=== PATIENT | female | born 1970 | race Caucasian/White ===

== ENCOUNTER 2017-02-25 16:34 | Inpatient (IN) | payer OTHER ==
[~2017-02-25] VITALS: Ht 172.7 cm; Wt 108.4 kg
[~2017-02-25 16:34] MED LIST: ACET500 PO; BUPR150ER PO; CEPH500 PO; Cipro500 MG PO; DIPATR PO; FLUC100 PO; FOLI1 PO; HUMIRA40 MG/0.8; IBUP800 PO; Imuran50 MG PO; K-Dur10 MEQ PO; Lialda1.2 GM PO; METR500 PO; OMEP20ER PO; PENVK500 PO; Pentasa500 MG PO; Robaxin750 MG; TYLENOL PM PO; Ultram50 MG PO; XARELTO20 MG PO; Zofran Odt4 MG PO
[2017-02-25] MEDS ORDERED: AZAT50 PO (16:53)
[2017-02-25 17:31] LABS: Hematocrit 39.6 % (33.0-51.0); Hemoglobin 13.1 g/dL (11.5-16.0); Mean Corpuscular HGB Conc 33.1 g/dL (31.5-36.5); Mean Corpuscular Volume 94 fL (80-100); Mean Platelet Volume 12.4 fL (9.1-12.4); Platelet Count 166 K/mm3 (150-400); RDW Coefficient Variation 12.6 % (11.7-14.2); RDW Standard Deviation 42.7 fL (35.1-46.3); Red Blood Cell Count 4.22 M/mm3 (3.80-5.20); White Blood Cell Count 9.47 K/mm3 (4.00-11.30)
[2017-02-25 17:46] LABS: Alanine Aminotransfer (ALT/SGP 20 U/L (12-78); Albumin, Blood 3.6 g/dL (3.4-5.0); Albumin/Globulin Ratio 0.9 (0.8-1.8); Alk Phos 124 U/L (50-136); Anion Gap 6 mmol/L (6-16); Aspartate Aminotrans (AST/SGOT 15 U/L (12-37); Bilirubin, Total 0.5 mg/dL (0.1-1.0); Blood Urea Nitrogen 11 mg/dL (8-24); Bun/Creatinine Ratio 14.9 (12.0-20.0); CO2, Blood 28 mmol/L (21-32); Calcium, Blood 9.3 mg/dL (8.5-10.1); Chloride, Blood 103 mmol/L (98-108); Creatinine, Blood 0.74 mg/dL (0.40-1.00); Globulin, Blood 4.2 g/dL (2.2-4.0); Glomerular Filtration Rate >60 (60-); Glucose, Blood 107 mg/dL (70-99); Potassium, Blood 3.6 mmol/L (3.5-5.5); Sodium, Blood 137 mmol/L (136-145); Total Protein, Blood 7.8 g/dL (6.4-8.2)
[2017-02-25 18:04] LABS: BASOPHILS PERCENT MAN 0 % (0-2); EOSINOPHILS ABSOLUTE MAN 0.56 K/mm3 (0.00-0.68); EOSINOPHILS PERCENT MAN 6 % (0-6); LYMPHOCYTES ABSOLUTE MAN 1.89 K/mm3 (0.84-5.20); LYMPHOCYTES PERCENT MAN 20 % (21-46); MONOCYTES ABSOLUTE MAN 0.66 K/mm3 (0.16-1.47); MONOCYTES PERCENT MAN 7 % (4-13); NEUTROPHILS ABSOLUTE MAN 6.34 K/mm3 (1.96-9.15); SEG NEUTROPHILS PERCENT MAN 67 % (41-73); TOTAL CELLS COUNTED 100
[2017-02-26 05:27] LABS: BASOPHILS ABSOLUTE AUTO 0.02 K/mm3 (0.00-0.23); BASOPHILS PERCENT AUTO 0 % (0-2); EOSINOPHILS ABSOLUTE AUTO 0.15 K/mm3 (0.00-0.68); EOSINOPHILS PERCENT AUTO 2 % (0-6); Hematocrit 37.1 % (33.0-51.0); Hemoglobin 12.2 g/dL (11.5-16.0); IMMATURE GRAN ABSOLUTE AUTO 0.03 K/mm3 (0.00-0.10); IMMATURE GRAN PERCENT AUTO 0 % (0-1); LYMPHOCYTES ABSOLUTE AUTO 1.35 K/mm3 (0.84-5.20); LYMPHOCYTES PERCENT AUTO 20 % (21-46); MONOCYTES ABSOLUTE AUTO 0.28 K/mm3 (0.16-1.47); MONOCYTES PERCENT AUTO 4 % (4-13); Mean Corpuscular HGB 31.2 pg (26.0-34.0); Mean Corpuscular HGB Conc 32.9 g/dL (31.5-36.5); Mean Corpuscular Volume 95 fL (80-100); Mean Platelet Volume 12.9 fL (9.1-12.4); NEUTROPHILS ABSOLUTE AUTO 4.85 K/mm3 (1.96-9.15); NEUTROPHILS PERCENT AUTO 73 % (41-73); Platelet Count 147 K/mm3 (150-400); RDW Coefficient Variation 12.8 % (11.7-14.2); RDW Standard Deviation 43.6 fL (35.1-46.3); Red Blood Cell Count 3.91 M/mm3 (3.80-5.20); White Blood Cell Count 6.68 K/mm3 (4.00-11.30)
[2017-02-26 05:57] LABS: Anion Gap 9 mmol/L (6-16); Blood Urea Nitrogen 8 mg/dL (8-24); Bun/Creatinine Ratio 13.6 (12.0-20.0); CO2, Blood 24 mmol/L (21-32); Chloride, Blood 105 mmol/L (98-108); Creatinine, Blood 0.59 mg/dL (0.40-1.00); Glomerular Filtration Rate >60 (60-); Glucose, Blood 78 mg/dL (70-99); Sodium, Blood 138 mmol/L (136-145)
[2017-02-26 05:58] LABS: Calcium, Blood 8.3 mg/dL (8.5-10.1)
[2017-03-01] MEDS ORDERED: ACET325 PO (11:15)
[2017-03-01] MEDS ORDERED: HYDMOR2 PO (11:16)
[2017-03-01] MEDS ORDERED: ONDA4ODT MM (11:17)
== END 2017-03-01 11:36 | disposition home or self-care (01) | DRG 439 ==
LOC: ER 16:34 → MEDS 18:42 → ENPENDDIS 03-01 11:00 → MEDS 03-01 11:36
PROVIDERS: Internal Medicine
DX: K85.90 Acute pancreatitis without necrosis or infection, unspecified (principal); D68.61 Antiphospholipid syndrome; K50.90 Crohn's disease, unspecified, without complications; F32.9 Major depressive disorder, single episode, unspecified; K80.20 Calculus of gallbladder without cholecystitis without obstruction; K21.9 Gastro-esophageal reflux disease without esophagitis; F17.210 Nicotine dependence, cigarettes, uncomplicated; Z79.01 Long term (current) use of anticoagulants; Z79.899 Other long term (current) drug therapy
CPT/HCPCS: 36415; 74177; 76705; 80048; 80053; 83605; 83690; 84145; 85007; 85025; 85027; 87040; 93005; 93010; 96361; 96374; 96375; 96376; 99285; C9113; J0295; J1170; J2405; J7030; J7500; Q9967

== ENCOUNTER 2017-04-27 00:14 | Day surgery (SDC) | payer OTHER ==
[~2017-04-27 00:14] MED LIST changes: +ACET325 PO; +AZAT50 PO; +HYDMOR2 PO; +ONDA4ODT MM
[2017-04-27] MEDS ORDERED: METR250 PO (08:43)
[2017-04-27] MEDS ORDERED: INFLECTRA100 MG IV (08:44)
== END 2017-04-27 11:20 | disposition home or self-care (01) ==
LOC: ATC 00:14
DX: K50.10 Crohn's disease of large intestine without complications (principal); K65.1 Peritoneal abscess; I81 Portal vein thrombosis; K76.0 Fatty (change of) liver, not elsewhere classified; K85.30 Drug induced acute pancreatitis without necrosis or infection; F17.210 Nicotine dependence, cigarettes, uncomplicated
CPT/HCPCS: 96375; 96413; 96415; J1720; J7050; Q0163; Q5102-ZB

== ENCOUNTER 2017-05-11 00:43 | Day surgery (SDC) | payer OTHER ==
[~2017-05-11 00:43] MED LIST changes: +INFLECTRA100 MG IV; +METR250 PO
== END 2017-05-11 10:45 | disposition home or self-care (01) ==
LOC: ATC 00:43
DX: K50.10 Crohn's disease of large intestine without complications (principal); K65.1 Peritoneal abscess; I81 Portal vein thrombosis; K76.0 Fatty (change of) liver, not elsewhere classified; K85.30 Drug induced acute pancreatitis without necrosis or infection; F17.210 Nicotine dependence, cigarettes, uncomplicated
CPT/HCPCS: 96375; 96413; 96415; J1720; J7050; Q0163; Q5102-ZB

== ENCOUNTER 2017-06-22 00:45 | Day surgery (SDC) | payer OTHER | END 2017-06-22 10:35 | disposition home or self-care (01) | LOC: ATC 00:45 | DX: K50.10 Crohn's disease of large intestine without complications (principal); K65.1 Peritoneal abscess; K76.0 Fatty (change of) liver, not elsewhere classified; K85.30 Drug induced acute pancreatitis without necrosis or infection | CPT/HCPCS: 96375; 96413; 96415; J1720; J7050; Q0163; Q5103 ==

== ENCOUNTER → 2017-11-21 | Outpatient (CLI) | payer OTHER | LOC: LAB 17:32 → LAB SHORT 17:32 | DX: N39.0 Urinary tract infection, site not specified (principal) | CPT/HCPCS: 87077; 87086; 87186 ==

== ENCOUNTER 2019-01-16 09:45 | Observation (INO) | payer OTHER ==
[~2019-01-16] VITALS: Ht 172.7 cm; Wt 105.2 kg
[~2019-01-16 09:45] MED LIST changes: -ADAL40PEN SC; -BUPROPION XL150 M1 PO; -CLON.1 PO; -HYDR1TAB94 PO; -LEVSOD25 PO; -Metoclopramide H5 MG PO; -Nicoderm Cq1 EAC1 TOP; -ONDA4ODT SL
[2019-01-16] MEDS ORDERED: CLON.1 PO (11:24)
[2019-01-16] MEDS ORDERED: BUPROPION XL150 M1 PO (13:01)
[2019-01-16] MEDS ORDERED: ADAL40PEN SC (14:20)
[2019-01-16 17:46] LABS: U Amphetamine Screen Not Detected; U Barbituate Screen Not Detected; U Benzodiazapine Screen Not Detected; U Buprenorphine Screen Not Detected; U Cannabinoids Screen Not Detected; U Cocaine Screen Not Detected; U Methadone Screen Not Detected; U Methamphetamine Screen Not Detected; U Opiates Screen DETECTED; U Oxycodone Screen Not Detected; U Phencyclidine Screen Not Detected; U Propoxyphene Screen Not Detected
--- NOTE | 2019-01-16 18:38 | NUR ---
SHIFT SUMMARY PATIENT ARRIVED VIA STRETCHER. MEDICATED FOR PAIN. RESTING IN BED. UA RECIEVED. ABLE TO MAKE HER NEEDS KNOWN. NO ACUTE ISSUES NOTED.
--- NOTE | 2019-01-16 22:10 | NUR ---
PATIENT REPORTS NOT GETTING PAIN RELIEF WITH FENTANYL IV 50 MCG Q2. PAIN LEVEL UP TO 9/10 AND ONLY DOWN TO 5-6/10. HOSPITALIST [facility] CHANGED ORDER TO IV DIALAUDID 1 MG Q2 AND DC'D FENTANYL.
--- NOTE | 2019-01-17 03:12 | NUR ---
SHIFT SUMMARY PATIENT HAD NO ACUTE CHANGES OBSERVED. AXOX 4 AND INDEPENDENT IN ROOM. REPORTED ABDOMINAL PAIN AND RECEIVED FENTANYL 50 MCG IV Q2 PER EMAR. PATIENT REPORTED PAIN REDUCED TO ONLY 5-6/10 FROM 11/05 AND HAD BETTER RESULTS WITH IV DILAUDID 1 MG IN ED. HOSPITALIST LORENA WOLFF CALLED AND CHANGED ORDER TO IV DILAUDID 1 MG Q2. PAIN REDUCED AND PATIENT ABLE TO SLEEP OVER FOUR HOURS. PIV REMAINS INTACT. NS INFUSING AT 75 mL/HR. ROOM AIR AND CIWA'S ONE FOR ANXIETY. VSS/AFEBRILE. DENIES N/V AND SOB. CALL LIGHT IN REACH. WILL CONTINUE TO MONITOR UNTIL DAY SHIFT NURSE ASSUMES CARE.
[2019-01-17 05:33] LABS: Hemoglobin 13.7 g/dL (11.5-16.0); Mean Corpuscular HGB Conc 32.6 g/dL (31.5-36.5); Mean Corpuscular Volume 110 fL (80-100); Mean Platelet Volume 11.9 fL (9.1-12.4); Platelet Count 104 K/mm3 (150-400); RDW Coefficient Variation 14.2 % (11.7-14.2); RDW Standard Deviation 58.5 fL (35.1-46.3); Red Blood Cell Count 3.81 M/mm3 (3.80-5.20); White Blood Cell Count 6.95 K/mm3 (4.00-11.30)
[2019-01-17 05:41] LABS: Alanine Aminotransfer (ALT/SGP 49 U/L (12-78); Albumin, Blood 2.9 g/dL (3.4-5.0); Albumin/Globulin Ratio 0.7 (0.8-1.8); Alk Phos 127 U/L (50-136); Anion Gap 3 mmol/L (6-16); Aspartate Aminotrans (AST/SGOT 77 U/L (12-37); Bilirubin, Total 0.9 mg/dL (0.1-1.0); Blood Urea Nitrogen 8 mg/dL (8-24); Bun/Creatinine Ratio 11.5 (12.0-20.0); CO2, Blood 29 mmol/L (21-32); Calcium, Blood 8.3 mg/dL (8.5-10.1); Chloride, Blood 107 mmol/L (98-108); Creatinine, Blood 0.69 mg/dL (0.40-1.00); Globulin, Blood 3.9 g/dL (2.2-4.0); Glomerular Filtration Rate >60 (60-); Glucose, Blood 97 mg/dL (70-99); Magnesium, Blood 2.1 mg/dL (1.6-2.4); Potassium, Blood 4.2 mmol/L (3.5-5.5); Sodium, Blood 139 mmol/L (136-145); Total Protein, Blood 6.8 g/dL (6.4-8.2)
--- NOTE | 2019-01-17 16:40 | NUR ---
1625 PT REF[address]ING SX CONSULT[address] DR RUIZ NOTIFIED OF PT'S REFUSAL, ORDERS TO CANCEL SX CONSULT. [address] PARKS'S OFFICE AGAIN TO INFORM THEM OF PT'S REFUSAL; OFFICE CLOSED EARLY. CALLED ANS @ 1625; LEFT MESSAGE TO CANCEL CONSULT.
--- NOTE | 2019-01-17 18:39 | NUR ---
SHIFT SUMMARY PT AWAKE DURING SHIFT REPORT, SITTING UPRIGHT IN BED WATCHING TV. REQUESTED PAIN MEDICATION W/A FOR MID-ABD PAIN. PT ADMITTED FOR PANCREATITIS R/T ETOH ABUSE. IVF'S INFUSING PER EMAR. PT INDEPENDENT IN RM TO BTHRM NEEDED. NO C/O NAUSEA THRU OUT THE DAY. PT WANTING TO HAVE ICE WATER; DR RUIZ IN TO SEE PT AND ADVANCED DIET TOLERATED. PT OFFERED CL AND TOLERATED WELL STARTING SLOW. DR RUIZ PUT IN FOR SX CONSULT THIS AFTERNOON FOR POSSIBLE LAB BECKI. DR PARKS'S OFFICE CALLED FOR CONSULT AND DR PARKS RETURNED CALL, PLACING ORDERS. PT THEN INFORMED OF ORDERS AND REFUSED CONSULT. PT REPORTED THAT SHE HAD HAD GALL STONES FOR YEARS, BUT RECENT TESTS SHOWED PT CLEAR AT THIS TIME. DR RUIZ INFORMED OF PT'S REFUSAL, INSTRUCTED TO CANCEL CONSULT PANCREATITIS MOSTLY LIKELY ALCOHOL RELATED. PT REPORTED THAT SHE WILL F/U WITH OUTPT GI NEEDED. PT MEDICATED FOR C/O PAIN TONIGHT, "NOT BAD, BUT INCREASING". PT THEN C/O NAUSEA AFTER IV DILAUDID GIVEN. ZOFRAN GIVEN PER EMAR. PT RESTING QUIETLY WATCHING TV. NO FURTHER C/O. CALL LT IN REACH.
--- NOTE | 2019-01-18 00:15 | NUR ---
BEGINNING SHIFT SUMMARY ASSUMED CARE OF PT AT 1900. PT WAS LYING IN BED WITH HER HEAD UP, PT STATES SHE FEELS BETTER BUT IS A LITTLE NAUSEOUS AFTER HER CLEAR LIQUID DIET. HEART SOUNDS REGULAR, PERIPHERAL PULSES STRONG, IV RUNNING NS @ 75ML/HR. LUNG SOUNDS CLEAR, PING SOB/ DYSPNEA. BOWEL SOUNDS HYPOACTIVE, ABDOMINAL TENDERNESS IN THE PERIUMBILICAL AREA. PT ATE ONE ICECREAM AND TOLERATED IT WELL. CALL LIGHT IN REACH, BED IN LOWEST POITION, WILL CONTINUE TO MONITOR.
--- NOTE | 2019-01-18 05:06 | NUR ---
END SHIFT SUMMARY NO ACUTE CHANGES NOTED THROUGHOUT THE SHIFT. PT WAS WOKEN FOR MORNING LABS AND MEDICATION ADMINISTRATION. PT STATED THAT SHE WAS FEELING BETTER, HAD LITTLE TO NO PAIN IN HER ABDOMEN, AND DENIES NEASEA. IV RUNNING NS @ 75ML/HR. CALL LIGHT IN REACH, BED IN LOWEST POSITIN, WILL CONTINUE TO MONITOR UNTIL DAYSHIFT NURSE ARRIVES.
[2019-01-18 05:19] LABS: BASOPHILS ABSOLUTE AUTO 0.02 K/mm3 (0.00-0.23); BASOPHILS PERCENT AUTO 0 % (0-2); EOSINOPHILS ABSOLUTE AUTO 0.24 K/mm3 (0.00-0.68); EOSINOPHILS PERCENT AUTO 4 % (0-6); Hematocrit 41.2 % (33.0-51.0); Hemoglobin 13.5 g/dL (11.5-16.0); IMMATURE GRAN ABSOLUTE AUTO 0.02 K/mm3 (0.00-0.10); IMMATURE GRAN PERCENT AUTO 0 % (0-1); LYMPHOCYTES ABSOLUTE AUTO 1.29 K/mm3 (0.84-5.20); LYMPHOCYTES PERCENT AUTO 20 % (21-46); MONOCYTES ABSOLUTE AUTO 0.29 K/mm3 (0.16-1.47); MONOCYTES PERCENT AUTO 5 % (4-13); Mean Corpuscular HGB 36.5 pg (26.0-34.0); Mean Corpuscular HGB Conc 32.8 g/dL (31.5-36.5); Mean Corpuscular Volume 111 fL (80-100); Mean Platelet Volume 12.6 fL (9.1-12.4); NEUTROPHILS ABSOLUTE AUTO 4.52 K/mm3 (1.96-9.15); NEUTROPHILS PERCENT AUTO 71 % (41-73); Platelet Count 115 K/mm3 (150-400); RDW Coefficient Variation 14.1 % (11.7-14.2); RDW Standard Deviation 58.6 fL (35.1-46.3); White Blood Cell Count 6.38 K/mm3 (4.00-11.30)
[2019-01-18 06:13] LABS: Alanine Aminotransfer (ALT/SGP 59 U/L (12-78); Albumin, Blood 3.1 g/dL (3.4-5.0); Albumin/Globulin Ratio 0.7 (0.8-1.8); Alk Phos 125 U/L (50-136); Anion Gap 4 mmol/L (6-16); Aspartate Aminotrans (AST/SGOT 88 U/L (12-37); Bilirubin, Total 0.9 mg/dL (0.1-1.0); Blood Urea Nitrogen 5 mg/dL (8-24); Bun/Creatinine Ratio 7.2 (12.0-20.0); CO2, Blood 29 mmol/L (21-32); Calcium, Blood 8.9 mg/dL (8.5-10.1); Chloride, Blood 108 mmol/L (98-108); Creatinine, Blood 0.69 mg/dL (0.40-1.00); Globulin, Blood 4.3 g/dL (2.2-4.0); Glomerular Filtration Rate >60 (60-); Glucose, Blood 92 mg/dL (70-99); Potassium, Blood 4.2 mmol/L (3.5-5.5); Sodium, Blood 141 mmol/L (136-145); Total Protein, Blood 7.4 g/dL (6.4-8.2)
[2019-01-18] MEDS ORDERED: HYDR1TAB94 PO (11:31)
[2019-01-18] MEDS ORDERED: LEVSOD25 PO (11:32)
[2019-01-18] MEDS ORDERED: Metoclopramide H5 MG PO (11:32)
[2019-01-18] MEDS ORDERED: Nicoderm Cq1 EAC1 TOP (11:33)
[2019-01-18] MEDS ORDERED: ONDA4ODT SL (11:33)
--- NOTE | 2019-01-18 12:30 | NUR ---
DISCHARGE INSTRUCTIONS COMPLETED AND DISCUSSED WITH PT EXPRESSING UNDERSTANDING. SCRIPTS FAXED TO [facility]. PT WISHED TO AMBULATE TO HER CAR. LEFT AT 1210.
== END 2019-01-18 12:15 | disposition home or self-care (01) ==
LOC: ER 09:45 → MEDS 09:46 → ER 12:51 → MEDS 12:51 → ENPENDDIS 01-18 09:47 → MEDS 01-18 12:15
PROVIDERS: Nurse Practitioner Acute Care; ADMIT Family Medicine
DX: K85.20 Alcohol induced acute pancreatitis without necrosis or infection (principal); F10.20 Alcohol dependence, uncomplicated; D68.61 Antiphospholipid syndrome; K50.90 Crohn's disease, unspecified, without complications; E03.9 Hypothyroidism, unspecified; F32.9 Major depressive disorder, single episode, unspecified; K21.9 Gastro-esophageal reflux disease without esophagitis; D69.6 Thrombocytopenia, unspecified; K80.20 Calculus of gallbladder without cholecystitis without obstruction; I10 Essential (primary) hypertension; F17.210 Nicotine dependence, cigarettes, uncomplicated; E66.9 Obesity, unspecified; Z68.35 Body mass index [BMI] 35.0-35.9, adult; Z86.718 Personal history of other venous thrombosis and embolism; Z79.01 Long term (current) use of anticoagulants
CPT/HCPCS: 36415; 76705; 80053; 83690; 83735; 84443; 85025; 85027; 96361; 96374; 96375; 96376; 99285-25; G0378; J1170; J2405; J3010; J3411; J3475; J7030; J7042

== ENCOUNTER → 2019-01-16 | Outpatient (CLI) | payer OTHER ==
[~2019-01-16] MED LIST changes: +ADAL40PEN SC; +BUPROPION XL150 M1 PO; +CLON.1 PO; +HYDR1TAB94 PO; +LEVSOD25 PO; +Metoclopramide H5 MG PO; +Nicoderm Cq1 EAC1 TOP; +ONDA4ODT SL
[2019-01-16 08:36] LABS: BASOPHILS ABSOLUTE AUTO 0.06 K/mm3 (0.00-0.23); BASOPHILS PERCENT AUTO 1 % (0-2); EOSINOPHILS ABSOLUTE AUTO 0.27 K/mm3 (0.00-0.68); EOSINOPHILS PERCENT AUTO 4 % (0-6); Hematocrit 44.7 % (33.0-51.0); Hemoglobin 15.3 g/dL (11.5-16.0); IMMATURE GRAN ABSOLUTE AUTO 0.02 K/mm3 (0.00-0.10); IMMATURE GRAN PERCENT AUTO 0 % (0-1); LYMPHOCYTES ABSOLUTE AUTO 1.67 K/mm3 (0.84-5.20); LYMPHOCYTES PERCENT AUTO 24 % (21-46); MONOCYTES ABSOLUTE AUTO 0.33 K/mm3 (0.16-1.47); MONOCYTES PERCENT AUTO 5 % (4-13); Mean Corpuscular HGB 36.3 pg (26.0-34.0); Mean Corpuscular HGB Conc 34.2 g/dL (31.5-36.5); Mean Corpuscular Volume 106 fL (80-100); Mean Platelet Volume 12.3 fL (9.1-12.4); NEUTROPHILS ABSOLUTE AUTO 4.68 K/mm3 (1.96-9.15); NEUTROPHILS PERCENT AUTO 67 % (41-73); Platelet Count 142 K/mm3 (150-400); RDW Coefficient Variation 14.2 % (11.7-14.2); RDW Standard Deviation 55.2 fL (35.1-46.3); Red Blood Cell Count 4.22 M/mm3 (3.80-5.20); White Blood Cell Count 7.03 K/mm3 (4.00-11.30)
[2019-01-16 09:17] LABS: Alanine Aminotransfer (ALT/SGP 60 U/L (12-78); Albumin, Blood 3.4 g/dL (3.4-5.0); Albumin/Globulin Ratio 0.7 (0.8-1.8); Alk Phos 168 U/L (50-136); Anion Gap 4 mmol/L (6-16); Aspartate Aminotrans (AST/SGOT 102 U/L (12-37); Bilirubin, Total 0.7 mg/dL (0.1-1.0); Blood Urea Nitrogen 9 mg/dL (8-24); Bun/Creatinine Ratio 11.7 (12.0-20.0); CO2, Blood 31 mmol/L (21-32); Calcium, Blood 9.5 mg/dL (8.5-10.1); Chloride, Blood 104 mmol/L (98-108); Creatinine, Blood 0.77 mg/dL (0.40-1.00); Globulin, Blood 4.7 g/dL (2.2-4.0); Glomerular Filtration Rate >60 (60-); Glucose, Blood 115 mg/dL (70-99); Potassium, Blood 4.4 mmol/L (3.5-5.5); Sodium, Blood 139 mmol/L (136-145); Total Protein, Blood 8.1 g/dL (6.4-8.2)
== END | disposition home or self-care (01) ==
LOC: LAB EV 08:30 → LAB SHORT 08:30
PROVIDERS: General Practice
DX: D75.89 Other specified diseases of blood and blood-forming organs (principal); R10.9 Unspecified abdominal pain
CPT/HCPCS: 80053; 82607; 82746; 83690; 85025

== ENCOUNTER → 2019-06-09 | Outpatient (CLI) | payer OTHER ==
[~2019-06-09] MED LIST changes: +ADAL40PEN SC; +BUPROPION XL150 M1 PO; +CLON.1 PO; +HYDR1TAB94 PO; +LEVSOD25 PO; +Metoclopramide H5 MG PO; +Nicoderm Cq1 EAC1 TOP; +ONDA4ODT SL
== END | disposition home or self-care (01) ==
LOC: PLD 11:32 → LAB SHORT 11:32
DX: L73.8 Other specified follicular disorders (principal)
CPT/HCPCS: 88305

== ENCOUNTER 2019-07-09 18:33 | Inpatient (IN) | payer OTHER ==
[~2019-07-09] VITALS: Ht 172.7 cm; Wt 107.0 kg
[2019-07-09] MEDS ORDERED: VITAMIN D-32000 UNIT PO (18:49)
[2019-07-09 19:24] LABS: Hemoglobin 15.1 g/dL (11.5-16.0); Mean Corpuscular HGB 32.7 pg (26.0-34.0); Mean Corpuscular HGB Conc 32.8 g/dL (31.5-36.5); Mean Corpuscular Volume 100 fL (80-100); Mean Platelet Volume 12.8 fL (9.1-12.4); Platelet Count 122 K/mm3 (150-400); RDW Coefficient Variation 12.5 % (11.7-14.2); RDW Standard Deviation 45.7 fL (35.1-46.3); Red Blood Cell Count 4.62 M/mm3 (3.80-5.20); White Blood Cell Count 5.15 K/mm3 (4.00-11.30)
[2019-07-09 19:39] LABS: Alanine Aminotransfer (ALT/SGP 27 U/L (12-78); Albumin, Blood 2.8 g/dL (3.4-5.0); Albumin/Globulin Ratio 0.6 (0.8-1.8); Alk Phos 181 U/L (50-136); Anion Gap 9 mmol/L (6-16); Aspartate Aminotrans (AST/SGOT 55 U/L (12-37); Bilirubin, Total 1.2 mg/dL (0.1-1.0); Blood Urea Nitrogen 6 mg/dL (8-24); Bun/Creatinine Ratio 13.9 (12.0-20.0); CO2, Blood 23 mmol/L (21-32); Calcium, Blood 8.5 mg/dL (8.5-10.1); Chloride, Blood 103 mmol/L (98-108); Creatinine, Blood 0.43 mg/dL (0.40-1.00); Ethanol (Alcohol), Blood, Med <3 mg/dL; Glomerular Filtration Rate >60 (60-); Glucose, Blood 92 mg/dL (70-99); Potassium, Blood 3.7 mmol/L (3.5-5.5); Sodium, Blood 135 mmol/L (136-145); Total Protein, Blood 7.8 g/dL (6.4-8.2)
[2019-07-09 19:50] LABS: BAND PERCENT MAN 5 % (0-8); BASOPHILS PERCENT MAN 0 % (0-2); EOSINOPHILS PERCENT MAN 4 % (0-6); LYMPHOCYTES PERCENT MAN 2 % (21-46); MONOCYTES PERCENT MAN 0 % (4-13); NEUTROPHILS ABSOLUTE MAN 4.84 K/mm3 (1.96-9.15); SEG NEUTROPHILS PERCENT MAN 89 % (41-73); TOTAL CELLS COUNTED 100
[2019-07-09] MEDS ORDERED: B Complex-Foli1 EACH PO (20:40)
[2019-07-10 04:52] LABS: Hematocrit 40.2 % (33.0-51.0); Hemoglobin 12.7 g/dL (11.5-16.0); Mean Corpuscular HGB 32.5 pg (26.0-34.0); Mean Corpuscular HGB Conc 31.6 g/dL (31.5-36.5); Mean Platelet Volume 12.6 fL (9.1-12.4); Platelet Count 105 K/mm3 (150-400); RDW Coefficient Variation 12.9 % (11.7-14.2); RDW Standard Deviation 48.8 fL (35.1-46.3); Red Blood Cell Count 3.91 M/mm3 (3.80-5.20); White Blood Cell Count 10.96 K/mm3 (4.00-11.30)
[2019-07-10 04:53] LABS: Mean Corpuscular Volume 103 fL (80-100)
[2019-07-10 05:12] LABS: Anion Gap 11 mmol/L (6-16); Blood Urea Nitrogen 7 mg/dL (8-24); Bun/Creatinine Ratio 11.8 (12.0-20.0); CO2, Blood 22 mmol/L (21-32); Calcium, Blood 7.6 mg/dL (8.5-10.1); Chloride, Blood 106 mmol/L (98-108); Creatinine, Blood 0.59 mg/dL (0.40-1.00); Glomerular Filtration Rate >60 (60-); Glucose, Blood 123 mg/dL (70-99); Potassium, Blood 3.7 mmol/L (3.5-5.5); Sodium, Blood 139 mmol/L (136-145)
--- NOTE | 2019-07-10 07:41 | NUR ---
TANNERY WORKER SUMMARY Patient slept well waking twice to use bathroom. stool mixed with urine each time, and patient states still some blood and mucous. Dilaudid given twice for severe abdominal pain. Patient woke this morning with shaking chills and fever of 99.1F. Blankets removed with good result. Patient tolerating IVF without difficulty. 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
--- NOTE | 2019-07-10 13:14 | NUR ---
Advnce Directive education conducted. Upon receiving an admit referral for advance directive (AD) education, I visit patient. Patient tells me that she is interested in filling out the forms. I hand patient an AD booklet and go over each section, discuss the health care insurance sales representative and inform patient of the filing process. Patient displays a clear understanding of the instructions and elects to read through the AD on her own and proceed from there. I will continue to remain available to patient and family.
[2019-07-10 13:34] LABS: Hematocrit 40.1 % (33.0-51.0); Hemoglobin 12.9 g/dL (11.5-16.0); Mean Corpuscular HGB 32.6 pg (26.0-34.0); Mean Corpuscular HGB Conc 32.2 g/dL (31.5-36.5); Mean Corpuscular Volume 101 fL (80-100); Mean Platelet Volume 12.3 fL (9.1-12.4); Platelet Count 97 K/mm3 (150-400); RDW Coefficient Variation 12.9 % (11.7-14.2); RDW Standard Deviation 47.9 fL (35.1-46.3); Red Blood Cell Count 3.96 M/mm3 (3.80-5.20); White Blood Cell Count 6.55 K/mm3 (4.00-11.30)
--- NOTE | 2019-07-10 17:17 | NUR ---
SHIFT SUMMARY UP TO BATHROOM INDEPENDENTLY. REPORTS MINIMAL LOOSE STOOL TODAY MOSTLY MUCUS. MEDICATED FOR PAIN NEEDED WITH EFFECT. TOLERATING CLEAR LIQUIDS AND WANTING MORE BUT DISCUSSED WITH DR. VELAZQUEZ AND HE WOULD LIKE NO MORE FEVER OR PAIN BEFORE ADVANCING DIET. HAS RECEIVED TYLENOL TWICE FOR FEVER.
--- NOTE | 2019-07-11 01:15 | NUR ---
TEMP 101.8 WITH SHAKING CHILLS. 2 APAP GIVEN PER EMAR AND TOP BLANKET REMOVED FROM BED. WILL CONTINUE OBSERVATION
--- NOTE | 2019-07-11 02:11 | NUR ---
TEMP 99.4. NO FURTHER SHAKING CHILLS
[2019-07-11 06:35] LABS: Campylobacter Sp Not Detected (NOT DETECT)
[2019-07-11 06:36] LABS: Adenovirus F 40/41 Not Detected (NOT DETECT); Astrovirus Not Detected (NOT DETECT); Cryptosporidium Not Detected (NOT DETECT); Cyclospora Cayetanensis Not Detected (NOT DETECT); E. Coli O157 Not Detected (NOT DETECT); Entamoeba Histolytica Not Detected (NOT DETECT); Enteroaggregative E. coli-EAEC Not Detected (NOT DETECT); Enteropathogenic E. coli-EPEC Not Detected (NOT DETECT); Enterotoxigenic E. coli-ETEC Not Detected (NOT DETECT); Giardia Lamblia Not Detected (NOT DETECT); Norovirus GI/GII Not Detected (NOT DETECT); Plesiomonas Shigelloides Not Detected (NOT DETECT); Rotavirus A Not Detected (NOT DETECT); Salmonella Sp Not Detected (NOT DETECT); Sapovirus Not Detected (NOT DETECT); Shiga Toxin-prod E. coli-STEC Not Detected (NOT DETECT); Shigella/Enteroin E. coli-EIEC Not Detected (NOT DETECT); Vibrio Cholerae Not Detected (NOT DETECT); Vibrio Sp Not Detected (NOT DETECT); Yersinia Enterocolitica Not Detected (NOT DETECT)
--- NOTE | 2019-07-11 08:00 | NUR ---
PT PLEASANT COOP A/O. DENIES PAIN AT THIS TIME. STATES IMPROVED FROM YESTERDAY. H/R REG, NO MURMER NOTED. NO TELE. LUNGS CLEAR, RESP EASY, UNLABORED. ON R.A. BT X4 LAST BM LAST NITE. STATES VERY SMALL. VOIDS INDEPENDANTLY TO BATHROOM. BED IN LOW POSITION, CALLLITE IN REACHH, CALLS APPROP
--- NOTE | 2019-07-11 18:26 | NUR ---
PT HAS BEEN QUITE PLEASANT COOP TODAY. PAIN MANAGED WITH AVAIL MEDS. DILAUDID EXCHANGED FOR OXY. PT HAS CONTINUED TO IMPROVE. PAIN IS 3/10 NOW. STATES IS GOOD WITH THAT. PT CONTINUES TO AMBULATE SELF TO BATHROOM. WATCHING TV AT THIS TIME. NO OTHER CONCERNSAT THIS TIME. BED IN LOW POSITION, CALL LITE IN REACH, CALLS APPROP
--- NOTE | 2019-07-11 19:35 | NUR ---
1935 PT ELEVATED TEMP OF 100.1 F. PT STATES SHE DID NOT FEEL THE USUAL SHAKES AND CHILL THAT ACCOMPANIES IT. TYLENOL PO GIVEN PER EMAR. COOL WASH CLOTH APPLIED TO FOREHEAD. WILL CONTINUE TO MONITOR.
--- NOTE | 2019-07-12 06:06 | NUR ---
ADMINISTRATIVE TECH SUMMARY PT A/O X4. INDEPENDENT IN ROOM. PT HAD SOME ABD PAIN OVER NIGHT. MEDICATED FOR PAIN PER EMAR. PT STATED SHE SLEPT "OKAY" DURING THE NIGHT. PT AFEBRILE AFTER TYLENOL WAS GIVEN. VSS. NO ACUTE CHANGES.
[2019-07-12] MEDS ORDERED: CIPR500 PO (10:59)
[2019-07-12] MEDS ORDERED: METR500 PO (11:00)
[2019-07-12] MEDS ORDERED: MIRALAX17 GM PO (11:03)
--- NOTE | 2019-07-12 11:20 | NUR ---
PATIENT WAS GIVEN DISCHARGE INSTRUCTIONS WELL EDUCATIONAL MATERIAL ON THE ANTIBIOTICS SHE WILL BE TAKING AT HOME. SCRIPT FOR PERCOCET GIVEN TO PATIENT. ALL QUESTIONS ANSWERED. POWERGIDE REMOVED FROM ASH[facility]. PATIENT DISCHARGED HOME AT 1120. PINSETTER MECHANIC AUTOMATIC ESCORTED PATTIENT OUT TO VEHICLE WHERE [id number] IS WAITING.
== END 2019-07-12 11:41 | disposition home or self-care (01) | DRG 871 ==
LOC: ER 18:33 → MEDS 21:56 → ENPENDDIS 07-12 11:00 → MEDS 07-12 11:41
PROVIDERS: Emergency Medicine; Hospitalist; Student in an Organized Health Care Education/Training Program; ADMIT Internal Medicine
DX: A41.9 Sepsis, unspecified organism (principal); I81 Portal vein thrombosis; K57.20 Diverticulitis of large intestine with perforation and abscess without bleeding; K50.90 Crohn's disease, unspecified, without complications; D68.61 Antiphospholipid syndrome; I10 Essential (primary) hypertension; E03.9 Hypothyroidism, unspecified; K21.9 Gastro-esophageal reflux disease without esophagitis; F32.9 Major depressive disorder, single episode, unspecified; F10.20 Alcohol dependence, uncomplicated; E66.9 Obesity, unspecified; Z68.35 Body mass index [BMI] 35.0-35.9, adult; F17.210 Nicotine dependence, cigarettes, uncomplicated; Z86.718 Personal history of other venous thrombosis and embolism
CPT/HCPCS: 0097U; 36415; 74177; 80048; 80053; 83605; 83690; 85025; 85027; 96361; 96365-59; 96375; 96376; 99285-25; A9270; C9113; G0480; J0744; J1170; J2405; J2543; J7030; J7050; J7120; Q9967

== ENCOUNTER 2019-07-24 07:02 | Emergency (ER) | payer OTHER ==
[~2019-07-24] VITALS: Ht 172.7 cm; Wt 104.3 kg
[~2019-07-24 07:02] MED LIST changes: +B Complex-Foli1 EACH PO; +CIPR500 PO; +MIRALAX17 GM PO; +VITAMIN D-32000 UNIT PO
[2019-07-24 08:11] LABS: BASOPHILS ABSOLUTE AUTO 0.04 K/mm3 (0.00-0.23); BASOPHILS PERCENT AUTO 1 % (0-2); EOSINOPHILS PERCENT AUTO 2 % (0-6); Hematocrit 37.4 % (33.0-51.0); Hemoglobin 12.2 g/dL (11.5-16.0); IMMATURE GRAN ABSOLUTE AUTO 0.02 K/mm3 (0.00-0.10); IMMATURE GRAN PERCENT AUTO 0 % (0-1); LYMPHOCYTES ABSOLUTE AUTO 1.29 K/mm3 (0.84-5.20); LYMPHOCYTES PERCENT AUTO 26 % (21-46); MONOCYTES ABSOLUTE AUTO 0.53 K/mm3 (0.16-1.47); MONOCYTES PERCENT AUTO 11 % (4-13); Mean Corpuscular HGB 32.4 pg (26.0-34.0); Mean Corpuscular HGB Conc 32.6 g/dL (31.5-36.5); Mean Corpuscular Volume 99 fL (80-100); Mean Platelet Volume 12.9 fL (9.1-12.4); NEUTROPHILS ABSOLUTE AUTO 3.03 K/mm3 (1.96-9.15); NEUTROPHILS PERCENT AUTO 61 % (41-73); Platelet Count 253 K/mm3 (150-400); RDW Coefficient Variation 14.5 % (11.7-14.2); Red Blood Cell Count 3.77 M/mm3 (3.80-5.20); White Blood Cell Count 5.01 K/mm3 (4.00-11.30)
[2019-07-24 09:07] LABS: Source, Urine Clean Catch
[2019-07-24 09:17] LABS: Bilirubin, Urine Neg (Neg); Blood, Urine Neg (Neg); Glucose Qualitative, Urine Neg (Neg); Ketones, Urine Neg (Neg); Leukocyte Esterase, Urine 1+ (Neg); Nitrite, Urine Neg (Neg); Protein, Urine 1+ (Neg); Urobilinogen, Urine NORM (Normal); pH, Urine 6.5 (5.0-8.0)
[2019-07-24 09:33] LABS: Alanine Aminotransfer (ALT/SGP 33 U/L (12-78); Albumin, Blood 2.5 g/dL (3.4-5.0); Albumin/Globulin Ratio 0.4 (0.8-1.8); Alk Phos 242 U/L (50-136); Anion Gap 9 mmol/L (6-16); Aspartate Aminotrans (AST/SGOT 71 U/L (12-37); Bilirubin, Total 1.4 mg/dL (0.1-1.0); Blood Urea Nitrogen 6 mg/dL (8-24); Bun/Creatinine Ratio 11.2 (12.0-20.0); CO2, Blood 21 mmol/L (21-32); Calcium, Blood 8.8 mg/dL (8.5-10.1); Chloride, Blood 106 mmol/L (98-108); Creatinine, Blood 0.54 mg/dL (0.40-1.00); Globulin, Blood 5.7 g/dL (2.2-4.0); Glomerular Filtration Rate >60 (60-); Glucose, Blood 131 mg/dL (70-99); Potassium, Blood 4.1 mmol/L (3.5-5.5); Sodium, Blood 136 mmol/L (136-145); Total Protein, Blood 8.2 g/dL (6.4-8.2)
[2019-07-24 09:35] LABS: Appearance, Urine Clear (Clear); Bacteria Rare /hpf; Color, Urine Yellow (P-Yellow); Red Blood Cells, Urine 0-2 /hpf (0-2); Squamous Epithelial Cells Few /hpf (Few); White Blood Cells, Urine 0-2 /hpf (0-5)
[2019-07-24 10:30] LABS: Adenovirus F 40/41 Not Detected (NOT DETECT); Astrovirus Not Detected (NOT DETECT); Campylobacter Sp Not Detected (NOT DETECT); Cryptosporidium Not Detected (NOT DETECT); Cyclospora Cayetanensis Not Detected (NOT DETECT); E. Coli O157 Not Detected (NOT DETECT); Entamoeba Histolytica Not Detected (NOT DETECT); Enteroaggregative E. coli-EAEC Not Detected (NOT DETECT); Enteropathogenic E. coli-EPEC Not Detected (NOT DETECT); Enterotoxigenic E. coli-ETEC Not Detected (NOT DETECT); Giardia Lamblia Not Detected (NOT DETECT); Norovirus GI/GII Not Detected (NOT DETECT); Plesiomonas Shigelloides Not Detected (NOT DETECT); Rotavirus A Not Detected (NOT DETECT); Salmonella Sp Not Detected (NOT DETECT); Sapovirus Not Detected (NOT DETECT); Shiga Toxin-prod E. coli-STEC Not Detected (NOT DETECT); Shigella/Enteroin E. coli-EIEC Not Detected (NOT DETECT); Vibrio Cholerae Not Detected (NOT DETECT); Vibrio Sp Not Detected (NOT DETECT); Yersinia Enterocolitica Not Detected (NOT DETECT)
[2019-07-24] MEDS ORDERED: OXYC5 PO (11:54)
== END 2019-07-24 12:03 | disposition home or self-care (01) ==
LOC: ER 07:02
PROVIDERS: Emergency Medicine
DX: R10.32 Left lower quadrant pain (principal); F17.210 Nicotine dependence, cigarettes, uncomplicated; Z79.2 Long term (current) use of antibiotics; Z79.899 Other long term (current) drug therapy; Z88.2 Allergy status to sulfonamides; Z88.8 Allergy status to other drugs, medicaments and biological substances
CPT/HCPCS: 0097U; 36415; 74177; 80053; 81001; 83605; 83690; 83735; 85025; 87086; 96361; 96374-59; 96375; 96376; 99284-25; J1170; J2405; J7030; Q9967

== ENCOUNTER 2019-08-15 16:27 | Inpatient (IN) | payer OTHER ==
[~2019-08-15] VITALS: Ht 172.7 cm; Wt 99.7 kg
[~2019-08-15 16:27] MED LIST changes: +OXYC5 PO
[2019-08-15 16:48] LABS: Source, Urine Clean Catch
[2019-08-15 16:58] LABS: Blood, Urine 1+ (Neg); Glucose Qualitative, Urine Neg (Neg); Ketones, Urine 1+ (Neg); Leukocyte Esterase, Urine 1+ (Neg); Nitrite, Urine Neg (Neg); Protein, Urine 2+ (Neg); Urobilinogen, Urine 2+ (Normal)
[2019-08-15 17:07] LABS: Appearance, Urine Clear (Clear); Bilirubin, Urine 1+ (Neg); Color, Urine Amber (P-Yellow)
[2019-08-15 17:08] LABS: Bacteria Few /hpf; Calcium Oxalate Crystals Few /hpf; Red Blood Cells, Urine Not Seen /hpf (0-2); Squamous Epithelial Cells Few /hpf (Few); White Blood Cells, Urine 0-2 /hpf (0-5)
[2019-08-15 17:22] LABS: BASOPHILS ABSOLUTE AUTO 0.03 K/mm3 (0.00-0.23); BASOPHILS PERCENT AUTO 0 % (0-2); EOSINOPHILS ABSOLUTE AUTO 0.03 K/mm3 (0.00-0.68); EOSINOPHILS PERCENT AUTO 0 % (0-6); Hematocrit 43.9 % (33.0-51.0); Hemoglobin 13.6 g/dL (11.5-16.0); IMMATURE GRAN ABSOLUTE AUTO 0.06 K/mm3 (0.00-0.10); IMMATURE GRAN PERCENT AUTO 1 % (0-1); LYMPHOCYTES ABSOLUTE AUTO 0.59 K/mm3 (0.84-5.20); LYMPHOCYTES PERCENT AUTO 6 % (21-46); MONOCYTES ABSOLUTE AUTO 0.33 K/mm3 (0.16-1.47); MONOCYTES PERCENT AUTO 3 % (4-13); Mean Corpuscular HGB 30.8 pg (26.0-34.0); Mean Platelet Volume 12.7 fL (9.1-12.4); NEUTROPHILS ABSOLUTE AUTO 9.74 K/mm3 (1.96-9.15); NEUTROPHILS PERCENT AUTO 90 % (41-73); Platelet Count 202 K/mm3 (150-400); RDW Coefficient Variation 12.6 % (11.7-14.2); RDW Standard Deviation 46.5 fL (35.1-46.3); Red Blood Cell Count 4.42 M/mm3 (3.80-5.20); White Blood Cell Count 10.78 K/mm3 (4.00-11.30)
[2019-08-15 17:28] LABS: Mean Corpuscular Volume 99 fL (80-100)
[2019-08-15 17:42] LABS: Alanine Aminotransfer (ALT/SGP 21 U/L (12-78); Albumin, Blood 3.1 g/dL (3.4-5.0); Albumin/Globulin Ratio 0.6 (0.8-1.8); Alk Phos 155 U/L (50-136); Anion Gap 10 mmol/L (6-16); Aspartate Aminotrans (AST/SGOT 29 U/L (12-37); Bilirubin, Total 0.9 mg/dL (0.1-1.0); Blood Urea Nitrogen 9 mg/dL (8-24); Bun/Creatinine Ratio 15.3 (12.0-20.0); CO2, Blood 21 mmol/L (21-32); Calcium, Blood 9.2 mg/dL (8.5-10.1); Chloride, Blood 106 mmol/L (98-108); Creatinine, Blood 0.59 mg/dL (0.40-1.00); Globulin, Blood 5.5 g/dL (2.2-4.0); Glomerular Filtration Rate >60 (60-); Glucose, Blood 148 mg/dL (70-99); Potassium, Blood 3.3 mmol/L (3.5-5.5); Sodium, Blood 137 mmol/L (136-145); Total Protein, Blood 8.6 g/dL (6.4-8.2)
--- NOTE | 2019-08-16 01:49 | NUR ---
ARRIVAL TO ICU 0005 - PT ARRIVES FROM ED TO ICU AT THIS TIME. SHE IS A/O X3, CALM, COOPERATIVE AND ANSWERING QUESTIONS APPROPRIATELY. PT ABLE TO AMBULATE FROM STRETCHER ONTO BED WITH NO ASSIST. VSS. NSR, HR 80S. SBP 90S, MAP GREATER THAN 65. DILAUDID 0.5 MG IVP GIVEN AT ARRIVAL. LR BOLUS ADMINISTERED IN ICU PER ORDER. NS WITH 20 KCL INFUSING AT 100 ML/HR ALONG WITH POTASSIUM REPLACEMENT. INFUSION RATE LOWER DUE TO PT COMPLAINING OF BURNING IN ARM. ZOFRAN GIVEN FOR NAUSEA, BUT NO ACTIVE VOMITING. TEMP 99.4 ORAL. WILL CONTINUE TO MONITOR.
[2019-08-16 03:29] LABS: BASOPHILS ABSOLUTE AUTO 0.02 K/mm3 (0.00-0.23); BASOPHILS PERCENT AUTO 0 % (0-2); EOSINOPHILS ABSOLUTE AUTO 0.03 K/mm3 (0.00-0.68); EOSINOPHILS PERCENT AUTO 0 % (0-6); Hematocrit 37.6 % (33.0-51.0); Hemoglobin 11.6 g/dL (11.5-16.0); IMMATURE GRAN ABSOLUTE AUTO 0.06 K/mm3 (0.00-0.10); IMMATURE GRAN PERCENT AUTO 1 % (0-1); LYMPHOCYTES ABSOLUTE AUTO 1.15 K/mm3 (0.84-5.20); LYMPHOCYTES PERCENT AUTO 10 % (21-46); MONOCYTES ABSOLUTE AUTO 0.42 K/mm3 (0.16-1.47); MONOCYTES PERCENT AUTO 4 % (4-13); Mean Corpuscular HGB 30.9 pg (26.0-34.0); Mean Corpuscular HGB Conc 30.9 g/dL (31.5-36.5); Mean Corpuscular Volume 100 fL (80-100); Mean Platelet Volume 12.9 fL (9.1-12.4); NEUTROPHILS ABSOLUTE AUTO 9.74 K/mm3 (1.96-9.15); NEUTROPHILS PERCENT AUTO 85 % (41-73); Platelet Count 169 K/mm3 (150-400); RDW Coefficient Variation 12.8 % (11.7-14.2); RDW Standard Deviation 47.8 fL (35.1-46.3); Red Blood Cell Count 3.76 M/mm3 (3.80-5.20); White Blood Cell Count 11.42 K/mm3 (4.00-11.30)
[2019-08-16 03:47] LABS: Anion Gap 5 mmol/L (6-16); Blood Urea Nitrogen 9 mg/dL (8-24); Bun/Creatinine Ratio 12.8 (12.0-20.0); CO2, Blood 28 mmol/L (21-32); Calcium, Blood 8.1 mg/dL (8.5-10.1); Chloride, Blood 105 mmol/L (98-108); Glomerular Filtration Rate >60 (60-); Glucose, Blood 106 mg/dL (70-99); Potassium, Blood 3.9 mmol/L (3.5-5.5); Sodium, Blood 138 mmol/L (136-145)
--- NOTE | 2019-08-16 04:07 | NUR ---
REASSESSMENT PT SLEEPING BUT EASILY AROUSABLE. UP TO TOILET TO VOID AND THEN COMPLAINED OF PAIN 8/10 IN ABDOMEN. DILAUDID 0.5 MG IVP GIVEN ONCE BACK IN BED. POTASSIUM REPLACEMENT CONTINUES TO INFUSE. MIV WITH KCL CONTINUES TO INFUSE AT 100 ML/HR. TEMP 99.1. WILL CONTINUE TO MONITOR.
--- NOTE | 2019-08-16 06:08 | NUR ---
SHIFT SUMMARY PT ADMITTED AT 0005 THIS AM. SINCE THEN, SHE HAS SLEPT ON/OFF. UP TO TOILET WITH STANDBY ASSIST. NO EPISODES OF VOMITING OR DIARRHEA. PT RECEIVED POTASSIUM REPLACEMENT; INFUSING AT LOWER RATE DUE TO IRRITATION. VSS. DILAUDID 0.5 MG IVP GIVEN PRN FOR ABDOMINAL PAIN. PT ADJUSTS HERSELF IN BED. MIV NS WITH KCL INFUSING AT 100 ML/HR. WILL GIVE BEDSIDE, HANDOFF REPORT TO DAY RN.
--- NOTE | 2019-08-16 07:14 | NUR ---
ASSUMED CARE REPORT FROM MATTEO REZA. PATIENT A&O. NPO. NS W/20 K AT 100 ML/HR
--- NOTE | 2019-08-16 08:19 | NUR ---
MD VISIT DR. PARKS IN. TORADOL DC'D AND NSAIDS ADDED AN ALLERGY. PATIENT WANTS TO DELAY SURGERY FOR TODAY TO SEE IF ABX WILL WORK. 0.5 DILAUDID BROUGHT PAIN FROM 12/05 TO 09/04.
--- NOTE | 2019-08-16 11:54 | NUR ---
CONTACTED DR. PARKS RE: NEW ORDER FOR HEPARIN SQ. ORDER CHANGED TO START TOMORROW IF NO SURGERY. DR. FRANCIS NOTIFIED
--- NOTE | 2019-08-16 15:42 | NUR ---
PATIENT CONTINUES TO REQUIRE DILAUDID Q 2HRS AND ZOFRAN Q8. SLEEPING LIGHTLY BETWEEN DOSES. AMBULATES TO TOILET WITH STANDBY ASSIST. POSITIONS SELF TO COMFORT IN BED
--- NOTE | 2019-08-16 17:48 | NUR ---
PATIENT WOULD LIKE TO DISCUSS POSSIBLE TRANSFER TO [facility] WITH DR. PARKS TOMORROW.
--- NOTE | 2019-08-16 20:00 | NUR ---
ASSUMPTION OF CARE: PT A&O. ABD IS CONSTANTLY PAINFUL. IN NSR. HR IN THE 90S, SBP IN THE 90S. LUNG SOUNDS ARE CLEAR, HOWEVER PT IS SHALLOW BREATHING D/T PAINFUL ABD. HAS 2LNC PRN FOR COMFORT. SPO2 >90%. ABD IS TENDER, MILDLY DISTENDED HOWEVER THIS IS NORMAL FOR PT. PER DAYSHIFT PT HAS REQUIRED FREQUENT DOSES OF DILAUDID. PT IS ABLE TO REPOSITION SELF IN BED AND USE TOILET ON OWN. 2 IVS IN RFA AND LAC. NS WITH KCL INFUSING AT 100MLS/HR. NO C/O OF N/V AT THIS TIME. WILL CONTINUE TO MONITOR
[2019-08-17 03:45] LABS: BASOPHILS ABSOLUTE AUTO 0.02 K/mm3 (0.00-0.23); BASOPHILS PERCENT AUTO 0 % (0-2); EOSINOPHILS ABSOLUTE AUTO 0.06 K/mm3 (0.00-0.68); EOSINOPHILS PERCENT AUTO 1 % (0-6); Hematocrit 34.4 % (33.0-51.0); Hemoglobin 10.5 g/dL (11.5-16.0); IMMATURE GRAN ABSOLUTE AUTO 0.03 K/mm3 (0.00-0.10); IMMATURE GRAN PERCENT AUTO 0 % (0-1); LYMPHOCYTES ABSOLUTE AUTO 0.81 K/mm3 (0.84-5.20); LYMPHOCYTES PERCENT AUTO 10 % (21-46); MONOCYTES ABSOLUTE AUTO 0.46 K/mm3 (0.16-1.47); MONOCYTES PERCENT AUTO 6 % (4-13); Mean Corpuscular HGB 30.9 pg (26.0-34.0); Mean Corpuscular HGB Conc 30.5 g/dL (31.5-36.5); Mean Corpuscular Volume 101 fL (80-100); Mean Platelet Volume 12.6 fL (9.1-12.4); NEUTROPHILS ABSOLUTE AUTO 7.03 K/mm3 (1.96-9.15); NEUTROPHILS PERCENT AUTO 84 % (41-73); Platelet Count 141 K/mm3 (150-400); RDW Coefficient Variation 12.9 % (11.7-14.2); RDW Standard Deviation 48.3 fL (35.1-46.3); White Blood Cell Count 8.41 K/mm3 (4.00-11.30)
[2019-08-17 04:03] LABS: Anion Gap 4 mmol/L (6-16); Blood Urea Nitrogen 9 mg/dL (8-24); Bun/Creatinine Ratio 13.4 (12.0-20.0); CO2, Blood 27 mmol/L (21-32); Calcium, Blood 8.2 mg/dL (8.5-10.1); Chloride, Blood 106 mmol/L (98-108); Creatinine, Blood 0.67 mg/dL (0.40-1.00); Glomerular Filtration Rate >60 (60-); Glucose, Blood 97 mg/dL (70-99); Potassium, Blood 4.1 mmol/L (3.5-5.5); Sodium, Blood 137 mmol/L (136-145)
--- NOTE | 2019-08-17 06:00 | NUR ---
SHIFT SUMMARY: NO ACUTE CHANGES T/O SHIFT. PT REPORTED CONSTANT PAIN THAT REQUIRED FREQ DOSES OF DILAUDID. NS WITH KCL STILL INFUSING AT 100MLS/HR. VSS. PT WAS ABLE TO AMBULATE TO TOILET ON OWN WITH NO ISSUES. WILL PASS REPORT TO ONCOMING RN
--- NOTE | 2019-08-17 07:22 | NUR ---
ASSUMED CARE: PT RESTING IN BED, STATES SHE FEELS GENERALLY UNCOMFORTABLE BUT DENIES NEEDS FOR MEDS FOR NAUSEA OR PAIN AT THIS TIME. PROVIDED ICE CHIPS AT THIS TIME. NO FURTHER NEEDS NOTED
--- NOTE | 2019-08-17 08:15 | NUR ---
DR PARKS CAME TO SEE PT. WAS AWARE THAT PT STATES SHE IS GENERAL UNCOMFORTABLE AND DOESN'T FEEL 0.5MG DILAUDID HELPS WITH PAIN VERY MUCH. NO NEW ORDERS AT THIS TIME. DR STATES HE WILL CALL PT'S DR IN [facility] TO DETERMINE SURGICAL PLAN AND WILL REPORT BACK TO RN WHEN HE KNOWS MORE. NO FURTHER NEEDS OR CONCERNS AT THIS TIME.
--- NOTE | 2019-08-17 10:04 | NUR ---
DR PARKS CALLED THIS RN TO STATE THAT HE GOT IN TOUCH WITH PT'S DR AT [facility]. WISHES TO TRANSFER VIA [facility]. CALL TO DR FRANCIS TO MAKE HER AWARE. STATES SHE WILL BE HERE TO SEE PT SHORTLY.
--- NOTE | 2019-08-17 12:29 | NUR ---
PT TRANSFERRED TO [facility] VIA [facility]. REPORT CALLED TO MATTEO ARTHUR. PAPERWORK PROVIDED
== END 2019-08-17 12:20 | disposition short-term general hospital (02) | DRG 871 ==
LOC: ER 16:27 → EDBEDREQTM 23:59 → EDBEDREQ 23:59 → EDBEDREQSVC 23:59 → ICUW 08-16 00:01
PROVIDERS: Emergency Medicine; Internal Medicine; Nurse Practitioner Acute Care; ADMIT Internal Medicine
DX: A41.9 Sepsis, unspecified organism (principal); K63.1 Perforation of intestine (nontraumatic); K50.90 Crohn's disease, unspecified, without complications; D68.61 Antiphospholipid syndrome; R65.20 Severe sepsis without septic shock; I10 Essential (primary) hypertension; K21.9 Gastro-esophageal reflux disease without esophagitis; Z20.828 Contact with and (suspected) exposure to other viral communicable diseases; F17.210 Nicotine dependence, cigarettes, uncomplicated; Z86.718 Personal history of other venous thrombosis and embolism; Z79.01 Long term (current) use of anticoagulants
CPT/HCPCS: 36415; 74177; 80048; 80053; 81001; 83605; 85025; 87086; 96361; 96365-59; 96375; 99285-25; C9113; J0696; J0744; J1170; J1644; J1885; J2270; J2405; J3480; J7120; Q9967; U0002

== ENCOUNTER 2019-09-06 14:51 | Inpatient (IN) | payer OTHER ==
[~2019-09-06] VITALS: Ht 172.7 cm; Wt 101.2 kg
[~2019-09-06 14:51] MED LIST changes: -B Complex-Foli1 EACH PO; -OMEP20ER PO; -VITAMIN D-32000 UNIT PO; -XARELTO20 MG PO
[2019-09-06 15:24] LABS: BASOPHILS ABSOLUTE AUTO 0.02 K/mm3 (0.00-0.23); BASOPHILS PERCENT AUTO 0 % (0-2); EOSINOPHILS ABSOLUTE AUTO 0.07 K/mm3 (0.00-0.68); EOSINOPHILS PERCENT AUTO 1 % (0-6); Hematocrit 33.3 % (33.0-51.0); Hemoglobin 10.5 g/dL (11.5-16.0); IMMATURE GRAN ABSOLUTE AUTO 0.04 K/mm3 (0.00-0.10); IMMATURE GRAN PERCENT AUTO 0 % (0-1); LYMPHOCYTES ABSOLUTE AUTO 1.22 K/mm3 (0.84-5.20); LYMPHOCYTES PERCENT AUTO 11 % (21-46); MONOCYTES ABSOLUTE AUTO 0.92 K/mm3 (0.16-1.47); MONOCYTES PERCENT AUTO 8 % (4-13); Mean Corpuscular HGB 29.3 pg (26.0-34.0); Mean Corpuscular HGB Conc 31.5 g/dL (31.5-36.5); Mean Corpuscular Volume 93 fL (80-100); Mean Platelet Volume 10.6 fL (9.1-12.4); NEUTROPHILS ABSOLUTE AUTO 9.19 K/mm3 (1.96-9.15); NEUTROPHILS PERCENT AUTO 80 % (41-73); Platelet Count 473 K/mm3 (150-400); RDW Coefficient Variation 14.3 % (11.7-14.2); RDW Standard Deviation 48.2 fL (35.1-46.3); Red Blood Cell Count 3.58 M/mm3 (3.80-5.20); White Blood Cell Count 11.46 K/mm3 (4.00-11.30)
[2019-09-06 15:42] LABS: Alanine Aminotransfer (ALT/SGP 10 U/L (12-78); Albumin/Globulin Ratio 0.4 (0.8-1.8); Alk Phos 677 U/L (50-136); Anion Gap 14 mmol/L (6-16); Aspartate Aminotrans (AST/SGOT 20 U/L (12-37); Blood Urea Nitrogen 9 mg/dL (8-24); Bun/Creatinine Ratio 15.2 (12.0-20.0); CO2, Blood 23 mmol/L (21-32); Calcium, Blood 8.4 mg/dL (8.5-10.1); Chloride, Blood 91 mmol/L (98-108); Creatinine, Blood 0.59 mg/dL (0.40-1.00); Globulin, Blood 5.1 g/dL (2.2-4.0); Glomerular Filtration Rate >60 (60-); Glucose, Blood 114 mg/dL (70-99); Potassium, Blood 3.5 mmol/L (3.5-5.5); Sodium, Blood 128 mmol/L (136-145); Total Protein, Blood 7.1 g/dL (6.4-8.2)
[2019-09-06 17:26] LABS: International Normalized Ratio 1.54; Prothrombin Time Results 16.1 Sec (9.7-11.5)
[2019-09-06 18:08] LABS: Source, Urine Clean Catch
[2019-09-06 18:10] LABS: Appearance, Urine Hazy (Clear); Bilirubin, Urine Neg (Neg); Blood, Urine 1+ (Neg); Color, Urine Amber (P-Yellow); Glucose Qualitative, Urine Neg (Neg); Ketones, Urine 3+ (Neg); Leukocyte Esterase, Urine 1+ (Neg); Nitrite, Urine Neg (Neg); Protein, Urine 1+ (Neg); Specific Gravity, Urine 1.015 (1.003-1.022); Urobilinogen, Urine NORM (Normal)
[2019-09-06 18:21] LABS: White Blood Cells, Urine 0-2 /hpf (0-5)
[2019-09-06 18:22] LABS: Bacteria Few /hpf; Red Blood Cells, Urine 0-2 /hpf (0-2); Squamous Epithelial Cells Few /hpf (Few); Yeast/Fungi Urine Few /hpf
[2019-09-06 19:19] LABS: Automated BF RBC Count 0.002 M/mm3 (0-0); Body Fluid WBC Count 214 /mm3 (0-999)
[2019-09-06 19:23] LABS: Automated BF WBC Count 0.214 K/mm3 (0-999)
[2019-09-06] MEDS ORDERED: XARELTO20 MG PO (20:23)
[2019-09-06] MEDS ORDERED: OMEP20ER PO (20:23)
[2019-09-06] MEDS ORDERED: OXYC5 PO (20:24)
[2019-09-06] MEDS ORDERED: FURO20 PO (20:25)
[2019-09-06] MEDS ORDERED: ONDA4ODT SL (20:26)
[2019-09-06] MEDS ORDERED: ACET325 PO (20:27)
[2019-09-06] MEDS ORDERED: VITAMIN D-32000 UNIT PO (20:35)
[2019-09-06] MEDS ORDERED: Vitamin B Comple1 EA PO (20:36)
[2019-09-06 21:01] LABS: Total Cell Count, Body Fluid 16
[2019-09-06 21:03] LABS: Appearance, Body Fluid Cloudy (Clear)
[2019-09-07 04:53] LABS: BASOPHILS ABSOLUTE AUTO 0.02 K/mm3 (0.00-0.23); BASOPHILS PERCENT AUTO 0 % (0-2); EOSINOPHILS ABSOLUTE AUTO 0.45 K/mm3 (0.00-0.68); EOSINOPHILS PERCENT AUTO 6 % (0-6); Hematocrit 29.2 % (33.0-51.0); Hemoglobin 8.7 g/dL (11.5-16.0); IMMATURE GRAN ABSOLUTE AUTO 0.03 K/mm3 (0.00-0.10); IMMATURE GRAN PERCENT AUTO 0 % (0-1); LYMPHOCYTES ABSOLUTE AUTO 1.08 K/mm3 (0.84-5.20); LYMPHOCYTES PERCENT AUTO 15 % (21-46); MONOCYTES PERCENT AUTO 7 % (4-13); Mean Corpuscular HGB 28.5 pg (26.0-34.0); Mean Corpuscular HGB Conc 29.8 g/dL (31.5-36.5); Mean Corpuscular Volume 96 fL (80-100); Mean Platelet Volume 10.5 fL (9.1-12.4); NEUTROPHILS ABSOLUTE AUTO 5.22 K/mm3 (1.96-9.15); NEUTROPHILS PERCENT AUTO 72 % (41-73); Platelet Count 292 K/mm3 (150-400); RDW Coefficient Variation 14.5 % (11.7-14.2); RDW Standard Deviation 50.8 fL (35.1-46.3); Red Blood Cell Count 3.05 M/mm3 (3.80-5.20)
[2019-09-07 05:12] LABS: Alanine Aminotransfer (ALT/SGP 9 U/L (12-78); Albumin, Blood 1.9 g/dL (3.4-5.0); Albumin/Globulin Ratio 0.5 (0.8-1.8); Alk Phos 514 U/L (50-136); Anion Gap 9 mmol/L (6-16); Aspartate Aminotrans (AST/SGOT 14 U/L (12-37); Bilirubin, Total 0.8 mg/dL (0.1-1.0); Blood Urea Nitrogen 7 mg/dL (8-24); Bun/Creatinine Ratio 12.1 (12.0-20.0); CO2, Blood 26 mmol/L (21-32); Calcium, Blood 7.5 mg/dL (8.5-10.1); Chloride, Blood 99 mmol/L (98-108); Creatinine, Blood 0.58 mg/dL (0.40-1.00); Globulin, Blood 4.1 g/dL (2.2-4.0); Glomerular Filtration Rate >60 (60-); Glucose, Blood 91 mg/dL (70-99); Magnesium, Blood 1.7 mg/dL (1.6-2.4); Phosphorus, Blood 3.1 mg/dL (2.5-4.9); Potassium, Blood 3.5 mmol/L (3.5-5.5); Sodium, Blood 134 mmol/L (136-145)
[2019-09-07 05:19] LABS: International Normalized Ratio 1.3; Prothrombin Time Results 13.7 Sec (9.7-11.5)
--- NOTE | 2019-09-07 06:34 | NUR ---
SHIFT SUMMARY PT ARRIVED FROM ER VIA STRETCHER APPROXIMATELY @ 2136; SELF TRANSFERED TO BED; PT A&O X4; SOFT BP; NSR NOTED ON TELE; C/O ABDOMEN PAIN 6-8 OF 10; FENTANYL & DILAUDID GIVEN PER EMAR; STERI STRIPS ON ABDOMEN C/D/I; NO OUTPUT OF ILEEOSTOMY NOTED; PT STATES SHE HAD SIGNIFICANT OUTPUT 09/05/19; CURRENTLY STATES SHE IS CONCERNED THAT FLUID IS BUILDING IN ABDOMEN; STATES SHE IS EXPERIENCING SLIGHT INCREASE IN SOB; HGB DECREASE NOTED, HOWEVER 3L NS GIVEN SINCE ARRIVING AT HOSPITAL; INDEPENDENT IN ROOM; CALLS APPROPRIATELY; CALL LIGHT IN REACH; BED IN LOWEST POSITION; WILL CONTINUE TO MONITOR CLOSELY UNTIL HAND OFF TO DAY SHIFT RN.
--- NOTE | 2019-09-07 15:10 | NUR ---
REPORT GIVEN TO RICARDO AT [facility]. PT GOING TO 14A, ROM 32.
--- NOTE | 2019-09-07 15:42 | NUR ---
PT LEFT UNIT ON [facility] VIA TRANSPORT.
== END 2019-09-07 15:40 | disposition short-term general hospital (02) | DRG 394 ==
LOC: ER 14:51 → PCU 21:23 → ER 21:23 → PCU 21:37
PROVIDERS: Emergency Medicine; Nurse Practitioner Acute Care; Student in an Organized Health Care Education/Training Program; ADMIT Internal Medicine
PROC: 0W9G3ZX Drainage of Peritoneal Cavity, Percutaneous Approach, Diagnostic (ICD-10-PCS; principal; 2019-09-06)
PROC: 0W9G3ZZ Drainage of Peritoneal Cavity, Percutaneous Approach (ICD-10-PCS; 2019-09-06)
DX: K91.89 Other postprocedural complications and disorders of digestive system (principal); K50.90 Crohn's disease, unspecified, without complications; Z93.3 Colostomy status; K21.9 Gastro-esophageal reflux disease without esophagitis; F32.9 Major depressive disorder, single episode, unspecified; I10 Essential (primary) hypertension; F17.210 Nicotine dependence, cigarettes, uncomplicated
CPT/HCPCS: 36415; 49083; 74177; 80053; 81001; 83690; 83735; 84100; 85025; 85610; 85730; 87040; 87070; 87086; 87205; 89051; 93005; 93010; 96361-59; 96365-59; 96367-59; 96372; 96375; 96375-59; 96376; 96376-59; 99285-25; A9270; G0378; J0295; J1170; J1650; J2405; J2543; J3010; J7030; P9046; Q9967

== ENCOUNTER 2019-09-13 14:13 | Emergency (ER) | payer OTHER ==
[~2019-09-13] VITALS: Ht 172.7 cm; Wt 104.3 kg
[~2019-09-13 14:13] MED LIST changes: +FURO20 PO; +OMEP20ER PO; +VITAMIN D-32000 UNIT PO; +Vitamin B Comple1 EA PO; +XARELTO20 MG PO
[2019-09-13] MEDS ORDERED: CLON.1 PO (14:54)
[2019-09-13 15:00] LABS: BASOPHILS ABSOLUTE AUTO 0.03 K/mm3 (0.00-0.23); BASOPHILS PERCENT AUTO 0 % (0-2); EOSINOPHILS ABSOLUTE AUTO 0.04 K/mm3 (0.00-0.68); EOSINOPHILS PERCENT AUTO 0 % (0-6); Hematocrit 34.4 % (33.0-51.0); Hemoglobin 10.7 g/dL (11.5-16.0); IMMATURE GRAN ABSOLUTE AUTO 0.07 K/mm3 (0.00-0.10); IMMATURE GRAN PERCENT AUTO 1 % (0-1); LYMPHOCYTES ABSOLUTE AUTO 1.13 K/mm3 (0.84-5.20); LYMPHOCYTES PERCENT AUTO 10 % (21-46); MONOCYTES ABSOLUTE AUTO 0.76 K/mm3 (0.16-1.47); MONOCYTES PERCENT AUTO 6 % (4-13); Mean Corpuscular HGB Conc 31.1 g/dL (31.5-36.5); Mean Corpuscular Volume 93 fL (80-100); Mean Platelet Volume 11.3 fL (9.1-12.4); NEUTROPHILS ABSOLUTE AUTO 9.77 K/mm3 (1.96-9.15); NEUTROPHILS PERCENT AUTO 83 % (41-73); Platelet Count 332 K/mm3 (150-400); RDW Coefficient Variation 14.6 % (11.7-14.2); RDW Standard Deviation 49.6 fL (35.1-46.3); Red Blood Cell Count 3.69 M/mm3 (3.80-5.20)
[2019-09-13 15:25] LABS: Alanine Aminotransfer (ALT/SGP 16 U/L (12-78); Albumin, Blood 1.8 g/dL (3.4-5.0); Albumin/Globulin Ratio 0.4 (0.8-1.8); Alk Phos 609 U/L (50-136); Anion Gap 10 mmol/L (6-16); Aspartate Aminotrans (AST/SGOT 22 U/L (12-37); Bilirubin, Total 1.2 mg/dL (0.1-1.0); Blood Urea Nitrogen 3 mg/dL (8-24); Bun/Creatinine Ratio 3.8 (12.0-20.0); CO2, Blood 25 mmol/L (21-32); Calcium, Blood 7.6 mg/dL (8.5-10.1); Chloride, Blood 95 mmol/L (98-108); Creatinine, Blood 0.79 mg/dL (0.40-1.00); Glomerular Filtration Rate >60 (60-); Glucose, Blood 102 mg/dL (70-99); Potassium, Blood 3.1 mmol/L (3.5-5.5); Sodium, Blood 130 mmol/L (136-145); Total Protein, Blood 6.8 g/dL (6.4-8.2)
[2019-09-13 17:18] LABS: Source, Urine Clean Catch
[2019-09-13 17:22] LABS: Blood, Urine 1+ (Neg); Glucose Qualitative, Urine Neg (Neg); Ketones, Urine 1+ (Neg); Leukocyte Esterase, Urine 1+ (Neg); Nitrite, Urine Neg (Neg); Protein, Urine 2+ (Neg); Specific Gravity, Urine 1.015 (1.003-1.022); Urobilinogen, Urine 1+ (Normal)
[2019-09-13 17:34] LABS: Appearance, Urine Clear (Clear); Bilirubin, Urine 1+ (Neg); Color, Urine Amber (P-Yellow)
[2019-09-13 17:36] LABS: Amorphous Light (0-Heavy); Bacteria Mod /hpf; Mucus Light (0-Heavy); Squamous Epithelial Cells Few /hpf (Few); Yeast/Fungi Urine Mod /hpf
[2019-09-13 21:00] LABS: Calcium, Ionized (POC) 0.92 mmol/L (1.10-1.46); Chloride (POC) 97 mmol/L (98-108); Creatinine (POC) 0.5 mg/dL (0.6-1.0); Glucose (ISTAT POC) 74 mg/dL (70-99); Hemoglobin (POC) 9.9 g/dL (12.0-16.0); Potassium (POC) 3.1 mmol/L (3.5-5.5); Sodium (POC) 134 mmol/L (135-148); Total CO2 (POC) 23 mmol/L (21-32)
== END 2019-09-13 21:40 | disposition short-term general hospital (02) ==
LOC: ER 14:13
PROVIDERS: Emergency Medicine; Physician Assistant
DX: A41.9 Sepsis, unspecified organism (principal); T85.590A Other mechanical complication of bile duct prosthesis, initial encounter; E87.6 Hypokalemia; K50.90 Crohn's disease, unspecified, without complications; I95.9 Hypotension, unspecified; Z88.6 Allergy status to analgesic agent; Z88.8 Allergy status to other drugs, medicaments and biological substances; Z79.899 Other long term (current) drug therapy; I10 Essential (primary) hypertension; F32.9 Major depressive disorder, single episode, unspecified; K21.9 Gastro-esophageal reflux disease without esophagitis; Z87.891 Personal history of nicotine dependence; Z90.49 Acquired absence of other specified parts of digestive tract; Z20.828 Contact with and (suspected) exposure to other viral communicable diseases
CPT/HCPCS: 36415; 36556; 51702; 71045; 74177; 80047; 80053; 81001; 83605; 83690; 84145; 85014; 85025; 87086; 93005; 93010; 96361-59; 96365-59; 96366-59; 96367-59; 96368; 96375-59; 96376-59; 99285-25; C1751; J0744; J1170; J2405; J2543; J3480; J7030; J7060; Q9967; U0002

== ENCOUNTER 2019-10-29 16:55 | Emergency (ER) | payer OTHER ==
[~2019-10-29] VITALS: Ht 170.2 cm; Wt 90.7 kg
[2019-10-29 17:45] LABS: BASOPHILS ABSOLUTE AUTO 0.05 K/mm3 (0.00-0.23); BASOPHILS PERCENT AUTO 1 % (0-2); EOSINOPHILS ABSOLUTE AUTO 0.07 K/mm3 (0.00-0.68); EOSINOPHILS PERCENT AUTO 1 % (0-6); Hematocrit 36.1 % (33.0-51.0); Hemoglobin 10.6 g/dL (11.5-16.0); IMMATURE GRAN ABSOLUTE AUTO 0.02 K/mm3 (0.00-0.10); IMMATURE GRAN PERCENT AUTO 0 % (0-1); LYMPHOCYTES ABSOLUTE AUTO 2.36 K/mm3 (0.84-5.20); LYMPHOCYTES PERCENT AUTO 32 % (21-46); MONOCYTES ABSOLUTE AUTO 0.51 K/mm3 (0.16-1.47); MONOCYTES PERCENT AUTO 7 % (4-13); Mean Corpuscular HGB Conc 29.4 g/dL (31.5-36.5); Mean Corpuscular Volume 96 fL (80-100); Mean Platelet Volume 11.4 fL (9.1-12.4); NEUTROPHILS ABSOLUTE AUTO 4.41 K/mm3 (1.96-9.15); NEUTROPHILS PERCENT AUTO 59 % (41-73); Platelet Count 390 K/mm3 (150-400); RDW Coefficient Variation 18.9 % (11.7-14.2); RDW Standard Deviation 65.8 fL (35.1-46.3); Red Blood Cell Count 3.78 M/mm3 (3.80-5.20); White Blood Cell Count 7.42 K/mm3 (4.00-11.30)
[2019-10-29 18:02] LABS: Alanine Aminotransfer (ALT/SGP 16 U/L (12-78); Albumin, Blood 1.8 g/dL (3.4-5.0); Albumin/Globulin Ratio 0.3 (0.8-1.8); Alk Phos 255 U/L (50-136); Anion Gap 8 mmol/L (6-16); Aspartate Aminotrans (AST/SGOT 39 U/L (12-37); Bilirubin, Total 0.8 mg/dL (0.1-1.0); Blood Urea Nitrogen 2 mg/dL (8-24); Bun/Creatinine Ratio 3.6 (12.0-20.0); CO2, Blood 26 mmol/L (21-32); Calcium, Blood 8.3 mg/dL (8.5-10.1); Chloride, Blood 106 mmol/L (98-108); Creatinine, Blood 0.55 mg/dL (0.40-1.00); Globulin, Blood 6.1 g/dL (2.2-4.0); Glomerular Filtration Rate >60 (60-); Glucose, Blood 98 mg/dL (70-99); Potassium, Blood 3.5 mmol/L (3.5-5.5); Sodium, Blood 140 mmol/L (136-145); Total Protein, Blood 7.9 g/dL (6.4-8.2)
== END 2019-10-29 21:37 | disposition home or self-care (01) ==
LOC: ER 16:55
PROVIDERS: Physician Assistant
DX: R10.11 Right upper quadrant pain (principal); T85.528A Displacement of other gastrointestinal prosthetic devices, implants and grafts, initial encounter; K21.9 Gastro-esophageal reflux disease without esophagitis; I10 Essential (primary) hypertension; Z88.6 Allergy status to analgesic agent; Z88.8 Allergy status to other drugs, medicaments and biological substances; Z79.899 Other long term (current) drug therapy; Z86.718 Personal history of other venous thrombosis and embolism; Z79.01 Long term (current) use of anticoagulants; Z87.891 Personal history of nicotine dependence; W19.XXXA Unspecified fall, initial encounter
CPT/HCPCS: 74177; 80053; 83690; 85025; 96374-59; 96375; 99284-25; J1170; J2405; Q9967

== ENCOUNTER → 2020-08-17 | Outpatient (CLI) | payer OTHER ==
[~2020-08-17] MED LIST changes: +HUMIRA(CF)40 MG/0.1 SC; +Hair, Skin & N1 EACH PO; +LYRICA100 M1 PO
[2020-08-17 19:20] LABS: Appearance, Urine Clear (Clear); Bilirubin, Urine Neg (Neg); Blood, Urine 1+ (Neg); Color, Urine Yellow (P-Yellow); Glucose Qualitative, Urine Neg (Neg); Ketones, Urine Neg (Neg); Leukocyte Esterase, Urine 2+ (Neg); Nitrite, Urine Neg (Neg); Protein, Urine Neg (Neg); Urobilinogen, Urine NORM (Normal); pH, Urine 6.5 (5.0-8.0)
[2020-08-17 19:35] LABS: Bacteria Not Seen /hpf; Red Blood Cells, Urine 0-2 /hpf (0-2); Squamous Epithelial Cells Few /hpf (Few)
== END | disposition home or self-care (01) ==
LOC: LAB 09:00 → LAB SHORT 09:00
PROVIDERS: Registered Nurse
DX: R30.0 Dysuria (principal)
CPT/HCPCS: 81001; 87086

== ENCOUNTER 2020-09-23 09:12 | Day surgery (SDC) | payer OTHER ==
[~2020-09-23] VITALS: Ht 170.2 cm; Wt 96.5 kg
== END 2020-09-23 11:41 | disposition home or self-care (01) ==
LOC: ORSCSDS 09:12
PROVIDERS: Internal Medicine Gastroenterology
PROC: 0DBB8ZX Excision of Ileum, Via Natural or Artificial Opening Endoscopic, Diagnostic (ICD-10-PCS; principal; 2020-09-23 10:30)
PROC: 0DBE8ZX Excision of Large Intestine, Via Natural or Artificial Opening Endoscopic, Diagnostic (ICD-10-PCS; principal; 2020-09-23 10:30)
PROC: 0DBP8ZX Excision of Rectum, Via Natural or Artificial Opening Endoscopic, Diagnostic (ICD-10-PCS; principal; 2020-09-23 10:30)
DX: K50.80 Crohn's disease of both small and large intestine without complications (principal); Z86.010 Personal history of colon polyps; K52.9 Noninfective gastroenteritis and colitis, unspecified; F17.210 Nicotine dependence, cigarettes, uncomplicated; Z79.899 Other long term (current) drug therapy
CPT/HCPCS: 88305; J2250; J2704; J7120

== ENCOUNTER 2022-06-22 11:17 | Emergency (ER) | payer OTHER ==
[~2022-06-22] VITALS: Ht 170.2 cm; Wt 102.1 kg
[2022-06-22 12:23] LABS: BASOPHILS ABSOLUTE AUTO 0.03 K/mm3 (0.00-0.23); BASOPHILS PERCENT AUTO 0 % (0-2); EOSINOPHILS ABSOLUTE AUTO 0.11 K/mm3 (0.00-0.68); EOSINOPHILS PERCENT AUTO 2 % (0-6); Hematocrit 43.6 % (33.0-51.0); Hemoglobin 13.7 g/dL (11.5-16.0); IMMATURE GRAN ABSOLUTE AUTO 0.02 K/mm3 (0.00-0.10); IMMATURE GRAN PERCENT AUTO 0 % (0-1); LYMPHOCYTES ABSOLUTE AUTO 1.62 K/mm3 (0.84-5.20); LYMPHOCYTES PERCENT AUTO 22 % (21-46); MONOCYTES ABSOLUTE AUTO 0.39 K/mm3 (0.16-1.47); MONOCYTES PERCENT AUTO 5 % (4-13); Mean Corpuscular HGB 26.8 pg (26.0-34.0); Mean Corpuscular HGB Conc 31.4 g/dL (31.5-36.5); Mean Corpuscular Volume 85 fL (80-100); Mean Platelet Volume 12.7 fL (9.1-12.4); NEUTROPHILS ABSOLUTE AUTO 5.15 K/mm3 (1.96-9.15); NEUTROPHILS PERCENT AUTO 70 % (41-73); Platelet Count 126 K/mm3 (150-400); RDW Coefficient Variation 12.2 % (11.7-14.2); Red Blood Cell Count 5.12 M/mm3 (3.80-5.20); White Blood Cell Count 7.32 K/mm3 (4.00-11.30)
[2022-06-22 12:36] LABS: Albumin, Blood 3.8 g/dL (3.4-5.0); Albumin/Globulin Ratio 0.8 (0.8-1.8); Bilirubin, Total 0.3 mg/dL (0.1-1.0); Bun/Creatinine Ratio 22.3 (12.0-20.0); Calcium, Blood 9.3 mg/dL (8.5-10.1); Creatinine, Blood 0.72 mg/dL (0.40-1.00); Globulin, Blood 4.6 g/dL (2.2-4.0); Potassium, Blood 4.2 mmol/L (3.5-5.5); Total Protein, Blood 8.4 g/dL (6.4-8.2)
[2022-06-22 13:45] VITALS: BP 148/73
[2022-06-22] MEDS ORDERED: PRED20 PO (14:00)
[2022-06-22] MEDS ORDERED: OXYC5 PO (14:01)
== END 2022-06-22 14:15 | disposition home or self-care (01) ==
LOC: ER 11:17
PROVIDERS: Physician Assistant
DX: K50.90 Crohn's disease, unspecified, without complications (principal); Z88.8 Allergy status to other drugs, medicaments and biological substances; Z88.6 Allergy status to analgesic agent; Z79.899 Other long term (current) drug therapy; K21.9 Gastro-esophageal reflux disease without esophagitis; I10 Essential (primary) hypertension; Z87.891 Personal history of nicotine dependence
CPT/HCPCS: 36415; 74177; 80053; 83690; 84703; 85025; 96372-59; 96374-59; 99284-25; A9270; J1200; J2270; J7512; Q9967

== ENCOUNTER → 2022-12-25 | Outpatient (CLI) | payer OTHER ==
[~2022-12-25] MED LIST changes: +PRED20 PO
[2022-12-26 14:31] LABS: Campylobacter Sp Not Detected (NOT DETECT); E. Coli O157 Not Detected (NOT DETECT); Enteroaggregative E. coli-EAEC Not Detected (NOT DETECT); Enteropathogenic E. coli-EPEC Detected (NOT DETECT); Enterotoxigenic E. coli-ETEC Not Detected (NOT DETECT); Plesiomonas Shigelloides Not Detected (NOT DETECT); Salmonella Sp Not Detected (NOT DETECT); Shiga Toxin-prod E. coli-STEC Not Detected (NOT DETECT); Shigella/Enteroin E. coli-EIEC Not Detected (NOT DETECT); Vibrio Cholerae Not Detected (NOT DETECT); Vibrio Sp Not Detected (NOT DETECT); Yersinia Enterocolitica Not Detected (NOT DETECT)
[2022-12-26 14:32] LABS: Adenovirus F 40/41 Not Detected (NOT DETECT); Astrovirus Not Detected (NOT DETECT); Cryptosporidium Not Detected (NOT DETECT); Cyclospora Cayetanensis Not Detected (NOT DETECT); Entamoeba Histolytica Not Detected (NOT DETECT); Giardia Lamblia Not Detected (NOT DETECT); Norovirus GI/GII Not Detected (NOT DETECT); Rotavirus A Not Detected (NOT DETECT); Sapovirus Not Detected (NOT DETECT)
== END ==
LOC: LAB 10:53 → LAB SHORT 12-26 10:53
PROVIDERS: Physician Assistant Medical
DX: K50.114 Crohn's disease of large intestine with abscess (principal); K50.119 Crohn's disease of large intestine with unspecified complications
CPT/HCPCS: 83993; 87507

== ENCOUNTER → 2023-01-15 | Outpatient (CLI) | payer OTHER ==
[2023-01-15 15:49] LABS: Campylobacter Sp Not Detected (NOT DETECT); E. Coli O157 Not Detected (NOT DETECT); Enteroaggregative E. coli-EAEC Not Detected (NOT DETECT); Enteropathogenic E. coli-EPEC Detected (NOT DETECT); Enterotoxigenic E. coli-ETEC Detected (NOT DETECT); Plesiomonas Shigelloides Not Detected (NOT DETECT); Salmonella Sp Not Detected (NOT DETECT); Shiga Toxin-prod E. coli-STEC Not Detected (NOT DETECT); Shigella/Enteroin E. coli-EIEC Not Detected (NOT DETECT); Vibrio Cholerae Not Detected (NOT DETECT); Vibrio Sp Not Detected (NOT DETECT); Yersinia Enterocolitica Not Detected (NOT DETECT)
[2023-01-15 15:50] LABS: Adenovirus F 40/41 Not Detected (NOT DETECT); Astrovirus Not Detected (NOT DETECT); Cryptosporidium Not Detected (NOT DETECT); Cyclospora Cayetanensis Not Detected (NOT DETECT); Entamoeba Histolytica Not Detected (NOT DETECT); Giardia Lamblia Not Detected (NOT DETECT); Norovirus GI/GII Detected (NOT DETECT); Rotavirus A Not Detected (NOT DETECT); Sapovirus Not Detected (NOT DETECT)
== END ==
LOC: LAB SHORT 09:00 → LAB 09:00
PROVIDERS: Physician Assistant Medical
DX: A04.4 Other intestinal Escherichia coli infections (principal)
CPT/HCPCS: 87507

== ENCOUNTER 2023-03-08 16:08 | Emergency (ER) | payer OTHER ==
[~2023-03-08] VITALS: Ht 170.2 cm; Wt 97.5 kg
[2023-03-08 17:00] LABS: BASOPHILS ABSOLUTE AUTO 0.04 K/mm3 (0.00-0.23); BASOPHILS PERCENT AUTO 1 % (0-2); EOSINOPHILS ABSOLUTE AUTO 0.13 K/mm3 (0.00-0.68); EOSINOPHILS PERCENT AUTO 2 % (0-6); Hematocrit 40.2 % (33.0-51.0); Hemoglobin 12.5 g/dL (11.5-16.0); IMMATURE GRAN ABSOLUTE AUTO 0.03 K/mm3 (0.00-0.10); IMMATURE GRAN PERCENT AUTO 0 % (0-1); LYMPHOCYTES ABSOLUTE AUTO 2.11 K/mm3 (0.84-5.20); LYMPHOCYTES PERCENT AUTO 25 % (21-46); MONOCYTES ABSOLUTE AUTO 0.48 K/mm3 (0.16-1.47); MONOCYTES PERCENT AUTO 6 % (4-13); Mean Corpuscular HGB 25.8 pg (26.0-34.0); Mean Corpuscular HGB Conc 31.1 g/dL (31.5-36.5); Mean Corpuscular Volume 83 fL (80-100); Mean Platelet Volume 12.1 fL (9.1-12.4); NEUTROPHILS ABSOLUTE AUTO 5.66 K/mm3 (1.96-9.15); NEUTROPHILS PERCENT AUTO 67 % (41-73); Platelet Count 205 K/mm3 (150-400); RDW Coefficient Variation 12.8 % (11.7-14.2); RDW Standard Deviation 38.8 fL (35.1-46.3); Red Blood Cell Count 4.84 M/mm3 (3.80-5.20); White Blood Cell Count 8.45 K/mm3 (4.00-11.30)
[2023-03-08 17:20] LABS: Albumin, Blood 3.8 g/dL (3.4-5.0); Albumin/Globulin Ratio 0.8 (0.8-1.8); Bilirubin, Total 0.3 mg/dL (0.1-1.0); Bun/Creatinine Ratio 17.2 (12.0-20.0); Calcium, Blood 9.4 mg/dL (8.5-10.1); Creatinine, Blood 0.7 mg/dL (0.40-1.00); Globulin, Blood 4.8 g/dL (2.2-4.0); Potassium, Blood 3.8 mmol/L (3.5-5.5); Total Protein, Blood 8.6 g/dL (6.4-8.2)
[2023-03-08 18:05] VITALS: BP 138/94
[2023-03-08 18:13] LABS: Source, Urine Clean Catch
[2023-03-08 18:17] LABS: Appearance, Urine Clear (Clear); Bilirubin, Urine Neg (Neg); Blood, Urine 1+ (Neg); Color, Urine Yellow (P-Yellow); Glucose Qualitative, Urine Neg (Neg); Ketones, Urine Neg (Neg); Leukocyte Esterase, Urine 2+ (Neg); Nitrite, Urine Neg (Neg); Protein, Urine Neg (Neg); Urobilinogen, Urine NORM (Normal)
[2023-03-08 18:25] LABS: Bacteria Mod /hpf; Red Blood Cells, Urine 0-2 /hpf (0-2); Squamous Epithelial Cells Few /hpf (Few)
[2023-03-08] MEDS ORDERED: CYCL10 PO (21:15)
[2023-03-08] MEDS ORDERED: CEPH500 PO (21:15)
== END 2023-03-08 21:31 | disposition home or self-care (01) ==
LOC: ER 16:08
PROVIDERS: Physician Assistant
DX: R10.9 Unspecified abdominal pain (principal); M54.6 Pain in thoracic spine; K21.9 Gastro-esophageal reflux disease without esophagitis; Z87.19 Personal history of other diseases of the digestive system; Z93.3 Colostomy status; I10 Essential (primary) hypertension; Z86.718 Personal history of other venous thrombosis and embolism; Z87.891 Personal history of nicotine dependence; Z79.01 Long term (current) use of anticoagulants; Z79.891 Long term (current) use of opiate analgesic; Z79.899 Other long term (current) drug therapy; Z88.6 Allergy status to analgesic agent; Z88.8 Allergy status to other drugs, medicaments and biological substances
CPT/HCPCS: 74177; 80053; 81001; 85025; 87086; 99284-25; A9270; Q9967

== ENCOUNTER → 2023-06-12 | Outpatient (CLI) | payer OTHER ==
[~2023-06-12] MED LIST changes: +CYCL10 PO
[2023-06-16 03:05] LABS: CALPROTECTIN,FECAL 879 ug/g (<=49)
== END ==
LOC: LAB SHORT 19:20 → LAB 19:20
PROVIDERS: Physician Assistant Medical
DX: K50.119 Crohn's disease of large intestine with unspecified complications (principal)
CPT/HCPCS: 83993

== ENCOUNTER → 2023-06-22 | Outpatient (CLI) | payer OTHER | LOC: LAB SHORT 14:09 → LAB EV 14:09 | DX: K50.119 Crohn's disease of large intestine with unspecified complications (principal) ==

== ENCOUNTER 2024-02-13 09:04 | Day surgery (SDC) | payer OTHER ==
[~2024-02-13] VITALS: Ht 170.2 cm; Wt 94.7 kg
[~2024-02-13 09:04] MED LIST changes: +Lactated Ringer's 1,000 ML IV ONE; +propofoL 50 ML IV ONE
[2024-02-13] MEDS ORDERED: BUPRENORPHINE HC8 MG (09:32)
[2024-02-13] MEDS ORDERED: BUPR150ER (09:32)
[2024-02-13] MEDS ORDERED: METFORMIN HCL500 MG (09:32)
[2024-02-13] MEDS ORDERED: TRAZ50 (09:33)
[2024-02-13] MEDS ORDERED: ENTYVIO300 M1 (09:33)
[2024-02-13] MEDS ORDERED: THERA-D2000 UNIT (09:33)
[2024-02-13] MEDS ORDERED: XARELTO20 MG (09:36)
[2024-02-13] MEDS ORDERED: Lactated Ringer's 1,000 ML IV ONE (10:13)
[2024-02-13 11:15] VITALS: BP 92/62
== END 2024-02-13 11:20 | disposition home or self-care (01) ==
LOC: ORSCSDS 09:04
PROVIDERS: Internal Medicine Gastroenterology
PROC: 0DBE8ZX Excision of Large Intestine, Via Natural or Artificial Opening Endoscopic, Diagnostic (ICD-10-PCS; principal; 2024-02-13 10:30)
DX: K50.90 Crohn's disease, unspecified, without complications (principal); D68.62 Lupus anticoagulant syndrome; E11.42 Type 2 diabetes mellitus with diabetic polyneuropathy; K75.81 Nonalcoholic steatohepatitis (NASH); F17.210 Nicotine dependence, cigarettes, uncomplicated; Z79.84 Long term (current) use of oral hypoglycemic drugs; Z79.01 Long term (current) use of anticoagulants; Z79.899 Other long term (current) drug therapy
CPT/HCPCS: 82947; 88305; J2704; J7120